=== PATIENT | female | born 1990 | race Caucasian/White ===

== ENCOUNTER 2020-12-01 18:28 | Inpatient (IN) | payer OTHER ==
[2020-12-01 19:24] VITALS: BMI 36.9
[2020-12-01] MEDS ORDERED: Promethazine HCl 25 MG/ML VIAL IM PRN (19:29)
[2020-12-01] MEDS ORDERED: HYDROcodone/Acetaminophen 5/325 mg Tablet PO PRN (19:29)
[2020-12-01] MEDS ORDERED: Lidocaine 1% (PF) 30 ML VIAL SC PRN (19:29)
[2020-12-01] MEDS ORDERED: Butorphanol Tartrate 1 MG/ML VIAL SLOW IVP PRN (19:29)
[2020-12-01] MEDS ORDERED: hydrALAZINE 20 MG/ML VIAL SLOW IVP PRN (19:29)
[2020-12-01] MEDS ORDERED: Zolpidem Tartrate 5 MG TAB PO PRN (19:29)
[2020-12-01] MEDS ORDERED: Acetaminophen 500 MG TAB PO PRN (19:29)
[2020-12-01] MEDS ORDERED: Ondansetron PF 4 MG/2 ML Vial IVP PRN (19:29)
[2020-12-01] MEDS ORDERED: Ibuprofen 800 MG TAB PO PRN (19:29)
[2020-12-01] MEDS ORDERED: Diphenoxylate HCl/Atropine Tablet PO PRN (19:29)
[2020-12-01] MEDS ORDERED: Misoprostol 200 MCG TAB PR PRN (19:29)
[2020-12-01] MEDS ORDERED: Carboprost 250 MCG/ML AMP IM PRN (19:29)
[2020-12-01] MEDS ORDERED: Methylergonovine 0.2 MG/ML VIAL IM PRN (19:29)
[2020-12-01] MEDS ORDERED: Penicillin G Potassium 5 MILL.UNITS in Sodium Chloride 0.9% 100 ML IVPB SCH (19:30)
[2020-12-01] MEDS ORDERED: NS w/ Oxytocin 30 units 500 ML IV SCH ×2 (19:30)
[2020-12-01] MEDS: Lactated Ringer's 1,000 ML IV SCH (20:00)
[2020-12-01] MEDS: Misoprostol 100 MCG TAB VAG SCH (20:02)
[2020-12-01 20:12] LABS: Hemoglobin 11.5 g/dL (12.0-15.5); Mean Corpuscular HGB CONC 33.6 g/dL (32.0-36.0); Mean Corpuscular Hemoglobin 29.5 pg (27.0-33.0); Mean Corpuscular Volume 87.7 fl (81.6-98.3); Mean Platelet Volume 11.9 fl (7.4-10.4); Platelet Count 229 10x3/uL (150-450); RBC Distribution Width 13.8 % (11.5-14.5); White Blood Cell (WBC) Count 12.3 10x3/uL (3.5-10.5)
[2020-12-01 20:28] LABS: ALT (SGPT) 22 U/L (8-55); AST (SGOT) 23 U/L (5-34); Albumin 3.3 g/dL (3.5-5.0); Alkaline Phosphatase 248 U/L (40-110); Anion Gap 13 mmol/L (10-20); BUN (Urea Nitrogen) 5 mg/dL (7.0-18.7); Calc. Creatinine Clearance 241 mL/min (70-130); Calcium 9.2 mg/dL (7.8-10.44); Carbon Dioxide 21 mmol/L (22-29); Chloride 105 mmol/L (98-107); Globulin 3.5 g/dL (2.4-3.5); Glucose 83 mg/dL (70-105); Potassium 3.7 mmol/L (3.5-5.1); Protein, Total 6.8 g/dL (6.0-8.3); Sodium 135 mmol/L (136-145)
[2020-12-01 20:47] LABS: Syphilis Antibody Nonreactive (Nonreactive); Syphilis Antibody Index 0.04 S/CO (<1.00 Non-Reactive)
[2020-12-01 20:48] LABS: Hep B Surf Ag Non-Reactive S/CO (NonReactive)
[2020-12-01 21:20] LABS: HBSAg Index 0.17 S/CO (0-0.99)
[2020-12-02] MEDS: Penicillin G 2.5 MILL.units 2.5 MILL.UNITS in Premix Bag 1 BAG IVPB SCH ×3 (00:15→14:07)
[2020-12-02] MEDS ORDERED: Preparation H Ointment 28 GM TUBE PR PRN (10:58)
[2020-12-02] MEDS ORDERED: Benzocaine-Menthol 82.5 ML CAN TOP PRN (10:58)
[2020-12-02] MEDS ORDERED: Lanolin Ointment 7 GM TUBE TOP PRN (10:58)
[2020-12-02] MEDS ORDERED: HYDROcodone/Acetaminophen 5/325 mg Tablet PO PRN ×2 (10:58)
[2020-12-02] MEDS ORDERED: Ondansetron PF 4 MG/2 ML Vial IVP PRN (10:58)
[2020-12-02] MEDS ORDERED: diphenhydrAMINE 25 MG CAP PO PRN (10:58)
[2020-12-02] MEDS ORDERED: Boostrix 0.5 ML (Tdap) VIAL IM ONE (10:58)
[2020-12-02] MEDS ORDERED: Milk Of Magnesia 30 ML UDCUP PO PRN (10:58)
[2020-12-02] MEDS ORDERED: Promethazine HCl 25 MG/ML VIAL IM PRN (10:58)
[2020-12-02] MEDS ORDERED: Bisacodyl 10 MG SUPP PR PRN (10:58)
[2020-12-02] MEDS ORDERED: hydrALAZINE 20 MG/ML VIAL SLOW IVP PRN (10:58)
[2020-12-02] MEDS ORDERED: valACYclovir 500 MG TAB PO SCH (11:00)
[2020-12-02] MEDS: Misoprostol 100 MCG TAB VAG SCH ×2 (14:06→14:07)
[2020-12-02] MEDS: Lactated Ringer's 1,000 ML IV SCH (14:07)
[2020-12-02] MEDS: Ibuprofen 800 MG TAB PO SCH ×2 (14:34→21:52)
[2020-12-02] MEDS: Ferrous Sulfate 325 MG TAB PO SCH (17:09)
[2020-12-02] MEDS: Docusate Calcium (SURFAK) 240 MG CAP PO SCH (21:52)
[2020-12-03] MEDS: Ibuprofen 800 MG TAB PO SCH ×2 (05:36→15:30)
[2020-12-03 07:51] VITALS: BP 114/71; TEMP 97.9
[2020-12-03] MEDS: Ferrous Sulfate 325 MG TAB PO SCH ×2 (08:00→17:10)
[2020-12-03] MEDS ORDERED: Prenatal Vitamin 1 TAB PO SCH (09:00)
[2020-12-03] MEDS: Docusate Calcium (SURFAK) 240 MG CAP PO SCH (09:28)
== END 2020-12-03 19:40 | disposition home or self-care (01) | DRG 805 ==
LOC: CSHLD 18:28 → CSHPP 12-02 13:27
PROVIDERS: ADMIT Student in an Organized Health Care Education/Training Program; ATTEND Student in an Organized Health Care Education/Training Program
PROC: 3E033VJ Introduction of Other Hormone into Peripheral Vein, Percutaneous Approach (ICD-10-PCS; principal; 2020-12-01)
PROC: 10E0XZZ Delivery of Products of Conception, External Approach (ICD-10-PCS; 2020-12-01)
DX: O26.62 Liver and biliary tract disorders in childbirth (principal); K83.1 Obstruction of bile duct; Z37.0 Single live birth; O98.82 Other maternal infectious and parasitic diseases complicating childbirth; B95.1 Streptococcus, group B, as the cause of diseases classified elsewhere; Z3A.38 38 weeks gestation of pregnancy
CPT/HCPCS: 80053; 85027; 86780; 86850; 86900; 86901; 87340; J2540; J3490; U0002